=== PATIENT | male | born 1950 | race Caucasian/White ===

== ENCOUNTER → 2016-05-18 | Outpatient (CLI) | payer MEDICARE, BC ==
[2016-05-18 10:25] LABS: Appearance,Urine Clear (Clear); Basophils # (A) 0.1 k/uL (0-0.2); Basophils % (A) 1 %; Bilirubin,Urine Negative (Negative); CH 30.9; CHCM 31.9; Eosinophils # (A) 0.5 k/uL (0-0.7); Eosinophils % (A) 10 %; Glucose,Urine (UA) Negative (Negative); HCT 44.3 % (39.0-53.0); HDW 2.24; HGB 13.8 gm/dL (13.0-17.5); Ketones,Urine Trace (Negative); Leukocyte Esterase,Urine Trace (Negative); Luc # (Auto) 0.14; Luc % (Auto) 3; Lymphocytes # (A) 1.3 k/uL (1.0-4.8); Lymphocytes % (A) 26 %; MCH 30.2 pg (25.0-35.0); MCHC 31.1 g/dL (31.0-37.0); MCV 97.1 fL (80.0-100.0); Mean Platelet Volume 7.1; Monocytes # (A) 0.4 k/uL (0-1.0); Monocytes % (A) 8 %; Mucus,Urine Moderate /hpf; Neutrophils # (A) 2.6 k/uL (1.3-7.7); Neutrophils % (A) 52 %; Nitrite,Urine Negative (Negative); PH, Urine 5.5 (5.0-8.0); Particle Count 5702; Protein,Urine Trace (Negative); RBC 4.57 m/uL (4.30-5.90); RBC,Urine 1 /hpf (0-5); RDW 14.3 % (11.5-15.5); Specific Gravity,Urine 1.026 (1.001-1.035); UA Billing (MACRO vs. MICRO) MICRO; WBC 4.9 k/uL (3.8-10.6); WBC (Perox) 5.59; WBC,Urine 2 /hpf (0-5)
[2016-05-18 10:29] LABS: INR 0.9 (<1.1); Prothrombin Time 9.6 sec (9.0-12.0)
[2016-05-18 10:42] LABS: ALT 35 U/L (21-72); AST 24 U/L (17-59); Alkaline Phosphatase 66 U/L (38-126); Anion Gap 5 mmol/L; Blood Urea Nitrogen 9 mg/dL (9-20); Calcium 9.6 mg/dL (8.4-10.2); Carbon Dioxide 25 mmol/L (22-30); Chloride 113 mmol/L (98-107); Glucose 87 mg/dL (74-99); Non-African American GFR(MDRD) >60 (>60 ml/min/1.73 sqM); Potassium 4.6 mmol/L (3.5-5.1); Sodium 143 mmol/L (137-145); Total Bilirubin 0.6 mg/dL (0.2-1.3); Total Protein 6.9 g/dL (6.3-8.2)
== END | disposition home or self-care (01) ==
LOC: LABPAT 09:52
PROVIDERS: ATTEND Orthopaedic Surgery
DX: Z01.810 Encounter for preprocedural cardiovascular examination (principal)
CPT/HCPCS: 80053; 81001; 85025; 85610; 85730; 86850; 86900; 86901; 87070

== ENCOUNTER → 2016-05-28 | Outpatient (CLI) | payer MEDICARE, BC | END | disposition home or self-care (01) | LOC: LABPAT 11:25 | PROVIDERS: ATTEND Orthopaedic Surgery | DX: Z01.810 Encounter for preprocedural cardiovascular examination (principal) | CPT/HCPCS: 93005 ==

== ENCOUNTER 2016-05-29 05:53 | Inpatient (IN) | payer MEDICARE, BC ==
--- NOTE | 2016-05-17 17:49 | CONS ---
DATE OF CONSULTATION: DATE OF SURGERY: 05/29/2016 Mr. Laboy is a 65-year-old gentleman who is scheduled for total right hip arthroplasty by Dr. Mccain on May 29, and we have been asked to see him regarding general medical concerns and his medical condition. The patient does have an underlying history of severe degenerative joint disease in the right hip. He also has a history of hypothyroidism. He also does have underlying myasthenia gravis, for which he is under treatment, and there is a history of hyperlipidemia, but statins and medications have not been used in light of his muscle problems with the myasthenia. Patient has had previous knee surgeries and also repair of the left shoulder back in 2007. There is no history of myocardial infarctions, diabetes or stroke. Home medications include: 1. Zantac 150 mg twice a day. 2. Levothyroxine 50 mcg. 3. Prednisone 20 mg tablets 2 of them every other day. 4. Mestinon 60 mg at 6 a.m., 9 a.m., 12, 3 p.m. and 6 p.m., then he takes a time span 180 mg Mestinon at 9 p.m. 5. Low-dose aspirin 81 mg. NO KNOWN ALLERGIES. REVIEW OF SYSTEMS: Negative for any unusual fever, chills or cough. No chest pain. No unusual headaches. No nausea, vomiting. No urinary or bowel symptoms. No unusual edema. FAMILY HISTORY: Positive for coronary artery disease. SOCIAL HISTORY: Patient does drink 1 to 2 daily. Lives locally with his . Patient has never smoked. On physical examination, he is alert, oriented, in no acute distress. His blood pressure was 134/80. His weight was 228.6 pounds and BMI of 31. Pulse of 80 and regular. HEENT: Unremarkable. Extraocular movements were intact. Neck is supple without thyromegaly or adenopathy noted. There is a scar from his recent surgery on his thymus, which was found to be benign. LUNGS: Clear to auscultation. HEART: Regular without murmurs. ABDOMEN: Soft and nontender. EXTREMITIES: No unusual edema. SCROTAL AND RECTAL: Deferred at this time. Patient is having labs and EKG performed at the hospital. At this point I see no definite contraindication to the planned surgery. We did recommend he hold his aspirin multiple vitamins one week prior to surgery. He may take his prednisone and Mestinon and levothyroxine in the morning of surgery with a small sip of water and also would consider additional IV corticosteroids magalys- and postoperative such as 100 mg of hydrocortisone IV at those times and also monitoring his blood pressure closely for any signs of any adrenal insufficiency. But I see no definite contraindication to the planned surgical intervention. Please call if you have any questions, concerns or problems. His right hip surgery scheduled at [facility] on May 29, 2016.
[2016-05-23 15:14] VITALS: BMI 30.5
[~2016-05-29 05:53] MED LIST: DEXAMETHASONE SOD PHOSPHATE 10 MG/ML 1 ML VIAL IV ONE; MIDAZOLAM 2 MG/2 ML VIAL IV PRN; ONDANSETRON 4 MG/2 ML VIAL IVP ONE; ceFAZolin 2 GM in SODIUM CHLORIDE 0.9% 100 ML IVPB ONE
[2016-05-29] MEDS: LACTATED RINGERS 1,000 ML IV SCH ×3 (06:48→23:22)
[2016-05-29] MEDS ORDERED: LIDOCAINE 1% 20 ML VIAL (10MG/ML) FOR IV START INTRADERMA ONE (06:49)
[2016-05-29 06:57] LABS: Glucose,Whole Blood 114 mg/dL (75-99)
[2016-05-29] MEDS ORDERED: HEPARIN SODIUM,PORCINE 10,000 UNIT/ML 1 ML VIAL ONE (07:00)
[2016-05-29] MEDS ORDERED: ePHEDrine 50 MG/ML 1 ML AMP ONE (07:00)
[2016-05-29] MEDS ORDERED: LIDOCAINE 1% INJ 10MG/ML (20 ML MDV) ONE (07:00)
[2016-05-29] MEDS ORDERED: SODIUM CHLORIDE 0.9% IRRIG 1,000 ML BTL IRRIGATION ONE (07:00)
[2016-05-29] MEDS ORDERED: MIDAZOLAM 2 MG/2 ML VIAL ONE (07:00)
[2016-05-29] MEDS ORDERED: GLYCOPYRROLATE 0.2 MG/ML 2 ML VIAL ONE (07:00)
[2016-05-29] MEDS ORDERED: PROPOFOL 10 MG/ML 20 ML VIAL IV ONE (07:00)
[2016-05-29] MEDS ORDERED: fentaNYL (PF) 50 MCG/ML 2 ML AMP ONE (07:00)
[2016-05-29] MEDS ORDERED: PHENYLEPHRINE-0.9% NACL SYG 1 MG/10 ML SYRINGE ONE (07:00)
[2016-05-29] MEDS ORDERED: ceFAZolin 3,000 MG in SODIUM CHLORIDE 0.9% IRRIGATIO 3,000 ML IRRIGATION ONE (07:39)
[2016-05-29] MEDS ORDERED: LACTATED RINGERS 1,000 ML IV ONE ×2 (07:58→09:05)
[2016-05-29] MEDS ORDERED: NALOXONE 0.4 MG/ML 1 ML VIAL IV PRN (09:33)
[2016-05-29] MEDS ORDERED: ONDANSETRON 4 MG/2 ML VIAL IVP PRN (09:33)
[2016-05-29] MEDS ORDERED: HYDROmorphone 1 MG/ML 1 ML SYRINGE IVP PRN ×3 (09:33)
[2016-05-29] MEDS ORDERED: MAGNESIUM HYDROXIDE 2,400 MG/10 ML CUP PO PRN (09:33)
[2016-05-29] MEDS ORDERED: TEMAZEPAM 15 MG CAP PO PRN (09:33)
[2016-05-29] MEDS ORDERED: HYDROcodone/APAP 5-325MG 1 EACH TAB PO PRN ×2 (09:33)
--- NOTE | 2016-05-29 09:48 | XR ---
EXAMINATION TYPE: XR Hip Limited RT DATE OF EXAM: 05/29/2016 9:41 AM COMPARISON: NONE HISTORY: 65-year-old male postop RAGHAVENDRA, assess alignment TECHNIQUE: Single portable frontal view FINDINGS: There is postoperative soft tissue gas. The radiocarpal arthroplasty is present. Both acetabular cup and femoral short stemmed components of the prosthesis appear well seated without periprosthetic frac ture seen. Alignment is grossly anatomic. IMPRESSION: Uncomplicated postoperative appearance right total hip arthroplasty.
[2016-05-29] MEDS ORDERED: PYRIDOSTIGMINE 60 MG TAB PO STA (10:33)
[2016-05-29] MEDS: HYDROmorphone 1 MG/ML 1 ML SYRINGE IVP PRN ×2 (10:57→11:31)
[2016-05-29] MEDS: MULTIVITAMINS, THERA 1 EACH TAB PO SCH (13:04)
[2016-05-29] MEDS: hydrOXYzine PAMOATE 25 MG CAP PO PRN ×2 (13:08→18:04)
[2016-05-29] MEDS ORDERED: PYRIDOSTIGMINE 60 MG TAB PO SCH ×2 (14:00→21:00)
[2016-05-29] MEDS: PYRIDOSTIGMINE 60 MG TAB PO SCH ×3 (15:15→23:22)
--- NOTE | 2016-05-29 17:19 | P.PN ---
Progress Note - Text The patient is a 65-year-old gentleman who has undergone a total right hip arthroplasty by Dr. Mccain today. He is sitting up in a chair at the side of the bed this afternoon. He is alert and oriented. He is complaining of some mild to moderate right hip area discomfort. He denies any chest pain or shortness of breath. No nausea or vomiting. He does have other history which includes hypothyroidism and myasthenia gravis. And he is on prednisone therapy for his myasthenia. Vital signs reveal temperature of 98 with a pulse 68 and respirations 16. Blood pressure is 127/71 and he is 93% saturated on room air. Head and neck exam unremarkable. Lung and heart clear and regular. Abdomen nontender. No unusual edema or neurological deficits. Accu-Chek earlier is 114 Impressions and plans: Overall this gentleman is doing well post right hip arthroplasty. His maintenance prednisone dosages have been ordered along with medications for hypothyroidism and his maintenance medicine for his myasthenia. At this time appears he can be progressed as per orthopedics. Will follow but please call if any questions or concerns or problems should arise.
[2016-05-29] MEDS ORDERED: WARFARIN 5 MG TAB PO ONE (18:00)
[2016-05-29] MEDS: ceFAZolin 2 GM in SODIUM CHLORIDE 0.9% 100 ML IVPB SCH ×2 (18:05→23:23)
[2016-05-29] MEDS: HYDROcodone/APAP 7.5-325MG 1 EACH TAB PO PRN ×2 (18:05→23:22)
[2016-05-29] MEDS: SENNOSIDES-DOCUSATE SODIUM 1 EACH TAB PO SCH (21:07)
[2016-05-30] MEDS: PYRIDOSTIGMINE 60 MG TAB PO SCH ×8 (00:47→22:26)
[2016-05-30] MEDS: HYDROcodone/APAP 7.5-325MG 1 EACH TAB PO PRN (04:30)
[2016-05-30] MEDS: FAMOTIDINE 20 MG TAB PO SCH (04:54)
[2016-05-30] MEDS: LACTATED RINGERS 1,000 ML IV SCH ×3 (05:41→16:21)
[2016-05-30 07:29] LABS: INR 1.1 (<1.1); Prothrombin Time 10.8 sec (9.0-12.0)
[2016-05-30 07:54] LABS: Basophils % (A) 0 %; CH 31.1; CHCM 32.4; Eosinophils # (A) 0.1 k/uL (0-0.7); Eosinophils % (A) 1 %; HCT 34.2 % (39.0-53.0); HDW 2.22; HGB 11.2 gm/dL (13.0-17.5); Luc % (Auto) 2; Lymphocytes # (A) 1.3 k/uL (1.0-4.8); Lymphocytes % (A) 21 %; MCH 31.4 pg (25.0-35.0); MCHC 32.6 g/dL (31.0-37.0); MCV 96.3 fL (80.0-100.0); Mean Platelet Volume 7.2; Monocytes # (A) 0.4 k/uL (0-1.0); Monocytes % (A) 7 %; Neutrophils # (A) 4.1 k/uL (1.3-7.7); Neutrophils % (A) 69 %; RBC 3.55 m/uL (4.30-5.90); RDW 14.1 % (11.5-15.5); WBC (Perox) 6.45
[2016-05-30] MEDS ORDERED: PYRIDOSTIGMINE 60 MG TAB PO ONE (08:00)
[2016-05-30] MEDS: LEVOTHYROXINE 50 MCG TAB PO SCH (08:27)
--- NOTE | 2016-05-30 08:30 | P.PN ---
Progress Note - Text The patient is a 65-year-old gentleman who underwent total right hip arthroplasty yesterday. Patient does have previous history of hypothyroidism and myasthenia gravis. This morning he is alert up in bed. Denies any chest pain or shortness of breath. No nausea or vomiting. He is having some surgical site pain but overall controlled. Vital signs reveal temperature 98.1 with a pulse of 54 and respirations 16. Blood pressure is 120/66 and he is 96% saturated on room air. Lung and heart exam was clear and regular. Abdomen is nontender. No unusual distal edema or focal neurological changes noted. Labs: White count is 6 with a hemoglobin 11.2 and a platelet count of 187. INR is 1.1 and blood sugar 114. Impressions and plans: Generally patient appears to be doing well first-day postop from the right hip arthroplasty. Blood pressures are remaining stable. Neuromuscular status appears to be satisfactory. He'll be continued on his maintenance prednisone and Mestinon. Thyroid is also being continued. Discussed with patient and staff at bedside this morning.
--- NOTE | 2016-05-30 08:30 | P.PN ---
Subjective Principal diagnosis: Status post right total hip arthroplasty This is a 65 year-old male post right total hip arthroplasty. This is post-op day 1. The patient was evaluated at the bedside today. The patient denies nausea, vomiting, abdominal pain, shortness of breath, and chest pain this morning. He states his pain is controlled at this time. The patient has not been up with physical therapy but did get up in the recliner chair last night. Objective - Vital Signs Vital signs: Vital Signs Temp 98.1 F 05/30/16 07:00 Pulse 54 L 05/30/16 07:00 Resp 16 05/30/16 07:00 BP 120/66 05/30/16 07:00 Pulse Ox 96 05/30/16 07:00 Intake & Output 05/29/16 05/30/16 05/30/16 18:59 06:59 18:59 Intake Total 2781 2000 Output Total 1200 2450 Balance 1581 -450 Intake: IV 2301 Intake, IV Titration 1100 Amount Lactated Ringers 1,000 ml 1100 @ 100 mls/hr IV .Q10H FABRICIO Rx#:[id number] Oral 480 900 Output: Urine 1000 2450 Uretheral (Herrera) 500 Estimated Blood Loss 200 Other: Voiding Method Indwelling Catheter - Exam The patient does not appear in acute distress. Alert and orientated x3. Dressing is clean dry and intact. Incision appears fine with no erythema or active drainage. Calf is soft and nontender. Good foot and ankle motion without difficulty. Sensation and circulatory status is intact. - Labs CBC & Chem 7: 05/30/16 06:46 Labs: Abnormal Lab Results - Last 24 Hours (Table) 05/30/16 Range/Units 06:46 RBC 3.55 L (4.30-5.90) m/uL Hgb 11.2 L (13.0-17.5) gm/dL Hct 34.2 L (39.0-53.0) % Laboratory Tests 05/30/16 06:46 PT 10.8 INR 1.1 Assessment and Plan (1) Primary localized osteoarthritis of right hip Status: Acute (2) Status post right hip replacement Status: Acute Plan: 1. Continue pain control 2. Anticoagulation with Coumadin per protocol 3. Start physical therapy and ambulation today 4. Anticipate discharge home with homecare
[2016-05-30] MEDS ORDERED: HYDROcodone/APAP 10-325MG 1 EACH TAB PO PRN (08:37)
[2016-05-30] MEDS: hydrOXYzine PAMOATE 25 MG CAP PO PRN ×2 (09:38→15:19)
[2016-05-30] MEDS: HYDROcodone/APAP 10-325MG 1 EACH TAB PO PRN ×3 (09:38→20:29)
[2016-05-30] MEDS: MULTIVITAMINS, THERA 1 EACH TAB PO SCH (13:13)
--- NOTE | 2016-05-30 17:20 | OP ---
DATE OF SERVICE: 05/29/2016 SURGEON: MARICRUZ AMBRIZ DO SOFTWOOD FALLER: YOLANDA GRIER PA-C PREOPERATIVE DIAGNOSIS: Degenerative joint disease of the right hip. POSTOPERATIVE DIAGNOSIS: Degenerative joint disease of the right hip. OPERATION: Right total hip replacement arthroplasty utilizing Blaire components with metal-backed cup polyethylene liner and ceramic head, press-fit. ANESTHESIA: ESTIMATED BLOOD LOSS: SPECIMENS REMOVED: COMPLICATIONS: OPERATIVE FINDINGS: DESCRIPTION OF PROCEDURE: Patient was taken to the operative suite and placed in supine position. Spinal anesthesia was performed by the department of anesthesiology. Patient was placed in right recumbent position and securely padded on the surgical table. A Betadine prep was carried out over the right hip. Sterile drapes were applied in the usual manner. A longitudinal incision was developed proximal femur. Sharp dissection through the subcutaneous tissues was performed. Tensor fascia jose alejandro was incised. A Charnley self-retaining retractor was inserted. Gluteus medius was dissected along the greater trochanter. The anterior capsule was excised and the leg was brought into abduction and the femoral head was dislocated. Femoral neck was shaped with a bone saw and the femoral head measured. The box chisel was utilized to gain access to the femoral canal. The trochanteric reamer was utilized in preparing the proximal canal. The neck was shaped with a shelving planer. Alignment well maintained. The acetabulum was then approached and the capsule was incised around the edge. Graduated reamer was utilized and 56 mm press-fit metal-backed component. The area was irrigated copiously with pulsatile antibiotic solution. The metal cup size 56, impacted into position, in appropriate alignment and position for stability. Three cancellous screws were utilized for further stability for the metal-backed cup. A 32 mm polyethylene liner was inserted and alignment of the impacted and locked into position in the metal-backed cup. Proximal femur was then approached with the leg in abduction. The size 12 femoral component was impacted into position. The ceramic head and stem were impacted into the trunnion. The hip was reduced and alignment and stability were maintained. The press-fit stem size 12 was inserted into the canal and impacted. The leg length appeared comparable to the opposite leg. The leg was then stabilized in mild abduction. The gluteus medius #3 Vicryl suture in horizontal mattress fashion. Number 2 Quill was utilized in reinforcing tensor fascia jose alejandro. Vicryl 2-0 suture was utilized in closing the subcutaneous tissue in interrupted fashion. Skin was approximated with #3-0 Quill suture in subcuticular fashion. Skin was sealed with Dermabond. A sterile dressing was applied. Patient was placed in abductor splint and sent to recovery room in stable condition. GROSS PATHOLOGY: Severe degenerative joint disease, right hip. Estimated blood loss 110 mL. CellSaver was utilized to return 60 mL blood. [facility]
[2016-05-30] MEDS ORDERED: WARFARIN 7.5 MG TAB PO ONE (18:00)
[2016-05-30] MEDS: SENNOSIDES-DOCUSATE SODIUM 1 EACH TAB PO SCH (19:32)
[2016-05-30 21:08] VITALS: RESP 16
[2016-05-31] MEDS: PYRIDOSTIGMINE 60 MG TAB PO SCH ×8 (01:39→23:05)
[2016-05-31] MEDS: LACTATED RINGERS 1,000 ML IV SCH (03:07)
[2016-05-31] MEDS: FAMOTIDINE 20 MG TAB PO SCH (05:58)
[2016-05-31] MEDS: MULTIVITAMINS, THERA 1 EACH TAB PO SCH (07:45)
[2016-05-31] MEDS: LEVOTHYROXINE 50 MCG TAB PO SCH (07:45)
[2016-05-31] MEDS: HYDROcodone/APAP 10-325MG 1 EACH TAB PO PRN (07:48)
[2016-05-31 07:49] LABS: INR 1.2 (<1.1); Prothrombin Time 12.3 sec (9.0-12.0)
--- NOTE | 2016-05-31 08:31 | P.PN ---
Progress Note - Text The patient is a 65-year-old gentleman who underwent total right hip arthroplasty 2 days ago. Patient does have history of myasthenia gravis and hypothyroidism for which he is on treatment. Patient states he generally has been feeling well. He denies any cough or phlegm production. He denies any nausea. He does have some hip area postsurgical discomfort but states it's better today than yesterday. He denies any dysuria or blood in his urine. Temperature is 100.3 this morning. Pulse is 70 with respirations 16 and blood pressure 120/74. He is 90% saturated on room air. Head and neck exam unremarkable. Lung and heart exam clear and regular. Abdomen is nontender. No unusual distal edema. No focal neurological changes. INR this morning is 1.2. Impressions: Patient appears to generally be doing well post right hip arthroplasty 2 days ago. Continue to progress as per orthopedics. He does have a low-grade temperature and we will check a urinalysis. Continue present medications for his underlying hypothyroidism and myasthenia. The patient is anticipating possibly home tomorrow. Coumadin adjusted as per orthopedics. Discussed with patient and staff this morning.
--- NOTE | 2016-05-31 08:35 | P.PN ---
Subjective Principal diagnosis: Status post right total hip arthroplasty This is a 65 year-old male post right total hip arthroplasty. This is post-op day 2. The patient was evaluated at the bedside today. The patient denies nausea, vomiting, abdominal pain, shortness of breath, and chest pain this morning. He states his pain is controlled at this time. The patient states he ambulated in the hallway yesterday. Objective - Vital Signs Vital signs: Vital Signs Temp 100.3 F H 05/31/16 07:00 Pulse 70 05/31/16 07:00 Resp 16 05/31/16 07:00 BP 120/74 05/31/16 07:00 Pulse Ox 90 L 05/31/16 07:00 Intake & Output 05/30/16 05/31/16 05/31/16 18:59 06:59 18:59 Intake Total 2460 400 240 Output Total 2024 1150 Balance 435 -750 240 Weight 102.058 kg Intake: Oral 2460 400 240 Output: Urine 2024 1150 Uretheral (Herrera) 450 Other: Voiding Method Indwelling Catheter Urinal - Exam The patient does not appear in acute distress. Alert and orientated x3. Dressing is clean dry and intact. Incision appears fine with no erythema or active drainage. Calf is soft and nontender. Good foot and ankle motion without difficulty. Sensation and circulatory status is intact. - Labs CBC & Chem 7: 05/30/16 06:46 Labs: Abnormal Lab Results - Last 24 Hours (Table) 05/31/16 Range/Units 07:12 PT 12.3 H (9.0-12.0) sec Laboratory Tests 05/31/16 07:12 PT 12.3 H INR 1.2 Assessment and Plan (1) Primary localized osteoarthritis of right hip Status: Acute (2) Status post right hip replacement Status: Acute Plan: 1. Continue pain control 2. Anticoagulation with Coumadin per protocol 3. Continue physical therapy and ambulation 4. Anticipate discharge home with homecare tomorrow.
[2016-05-31] MEDS ORDERED: predniSONE 20 MG TAB PO SCH (09:00)
[2016-05-31 11:29] LABS: Appearance,Urine Clear (Clear); Bilirubin,Urine Negative (Negative); Glucose,Urine (UA) Negative (Negative); Ketones,Urine Negative (Negative); Leukocyte Esterase,Urine Negative (Negative); Nitrite,Urine Negative (Negative); Protein,Urine Negative (Negative); Specific Gravity,Urine 1.009 (1.001-1.035); UA Billing (MACRO vs. MICRO) CHEM; Urobilinogen,Urine <2.0 mg/dL (<2.0)
[2016-05-31] MEDS ORDERED: PYRIDOSTIGMINE 60 MG TAB PO SCH (12:00)
[2016-05-31] MEDS ORDERED: WARFARIN 7.5 MG TAB PO ONE (18:00)
[2016-05-31] MEDS: SENNOSIDES-DOCUSATE SODIUM 1 EACH TAB PO SCH (19:55)
[2016-06-01] MEDS: PYRIDOSTIGMINE 60 MG TAB PO SCH ×3 (02:05→09:02)
[2016-06-01] MEDS: FAMOTIDINE 20 MG TAB PO SCH (05:52)
[2016-06-01] MEDS: MULTIVITAMINS, THERA 1 EACH TAB PO SCH (07:48)
[2016-06-01] MEDS: LEVOTHYROXINE 50 MCG TAB PO SCH (07:48)
[2016-06-01 07:52] VITALS: BP 125/76; PULSE 59; TEMP 98.9
[2016-06-01 07:55] LABS: Basophils % (A) 0 %; CH 30.9; CHCM 32.5; Eosinophils # (A) 0.2 k/uL (0-0.7); Eosinophils % (A) 3 %; HCT 34.8 % (39.0-53.0); HDW 2.25; HGB 11.4 gm/dL (13.0-17.5); Luc # (Auto) 0.18; Luc % (Auto) 2; Lymphocytes # (A) 1.4 k/uL (1.0-4.8); Lymphocytes % (A) 18 %; MCH 31.4 pg (25.0-35.0); MCHC 32.9 g/dL (31.0-37.0); MCV 95.4 fL (80.0-100.0); Mean Platelet Volume 7.8; Monocytes # (A) 0.5 k/uL (0-1.0); Monocytes % (A) 7 %; Neutrophils # (A) 5.7 k/uL (1.3-7.7); Neutrophils % (A) 70 %; RBC 3.65 m/uL (4.30-5.90); RDW 13.9 % (11.5-15.5); WBC 8.1 k/uL (3.8-10.6); WBC (Perox) 8.68
--- NOTE | 2016-06-01 08:11 | P.PN ---
Progress Note - Text The patient is a 65-year-old gentleman who has undergone total right hip arthroplasty 3 days previous. He does have underlying myasthenia gravis and hypothyroidism and is on medications for both. Yesterday he had a low-grade temp in the morning but this remained down the rest of the day. He denies any chest pain or shortness of breath. No nausea or vomiting. Temperature is 98.9 with a pulse of 59 and respirations 16. Blood pressure 125/ 76. He is 97% saturated on room air. Lung and heart examination is clear. There are no neurological deficits. No unusual distal edema noted. Laboratory values White count is 8.1 with a hemoglobin 11.4 and a platelet count of 194. His urinalysis was clear from yesterday. Impressions and plans: Overall this gentleman appears to be progressing well. Continue to progress as per orthopedics. If discharged, patient is to continue his previous home medications that include his prednisone every 48 hours along with his Mestinon and Synthroid. Further medications and analgesics as per orthopedics. Routine follow-up in the office. He is to call if any questions concerns or problems.
[2016-06-01 08:13] LABS: INR 1.3 (<1.1)
[2016-06-01 08:14] LABS: Prothrombin Time 12.8 sec (9.0-12.0)
--- NOTE | 2016-06-01 09:33 | P.DS ---
Providers Date of admission: 05/29/16 05:53 Expected date of discharge: 06/01/16 Attending physician: Elder Mccain Consults: 05/29/16 09:33 Consult Physician Routine Consulting Provider: Bennie Browning Reason/Comments: medical management Do you want consulting provider notified?: Yes Primary care physician: Bennie Browning - Discharge Diagnosis(es) (1) Primary localized osteoarthritis of right hip Current Visit: Yes Status: Acute (2) Status post right hip replacement Current Visit: Yes Status: Acute Hospital Course: This is a 65-year-old male with known history of degenerative arthritis of the right hip. The patient presents for evaluation. After discussion and consideration patient elects to proceed with total hip arthroplasty. The patient is seen preoperatively by Dr. Browning and cleared for surgery. Patient is admitted to [facility] on 05/29/2016 for total hip arthroplasty. The procedures performed without complication or sequelae. The patient is doing well postoperatively. Labs and vital signs are stable on day of discharge. On day of discharge patient's hip incision is healing well. There is minimal erythema. There is no drainage noted at this time. There is minimal soft tissue swelling to the hip and thigh. Patient has full foot and ankle motion without difficulty or pain. Neurovascular status to the right lower extremity is intact. Patient is discharged to home in good condition. Pertinent Studies: Laboratory Tests 06/01/16 06/01/16 07:11 07:11 WBC 8.1 RBC 3.65 L Hgb 11.4 L Hct 34.8 L PT 12.8 H INR 1.3 Patient Condition at Discharge: Stable Plan - Discharge Summary New Discharge Prescriptions: Aspirin 325 mg PO DAILY #30 tab HYDROcodone/APAP 10-325MG [[place] 10-325] 1 - 2 tab PO Q4-6H PRN #60 tab PRN Reason: Pain Sennosides-Docusate Sodium [Senokot-S] 2 tab PO DAILY #30 tablet Warfarin [Coumadin] 2.5 mg PO DIRECTED #30 tab Discharge Medication List Levothyroxine Sodium [Synthroid] 50 mcg PO DAILY 01/20/15 [History] Pyridostigmine [place] [Mestinon] 60 mg PO DIRECTED 01/20/15 [History] Aspirin [Adult Low Dose Aspirin EC] 81 mg PO DAILY 05/23/16 [History] Multivit-Min/FA/Lycopene/Lut [Centrum Silver Tablet] 1 tab PO DAILY 05/23/16 [ History] Pyridostigmine [place] [Mestinon] 180 mg PO 2100 05/23/16 [History] Ranitidine HCl [Zantac] 300 mg PO 0600 05/23/16 [History] predniSONE [predniSONE TAPER] 40 mg PO Q48H 05/23/16 [History] Warfarin Sodium [Warfarin Sodium] 2.5 mg PO DAILY 05/29/16 [History] Warfarin Sodium [Warfarin Sodium] 7.5 mg PO ONCE 05/29/16 [History] Aspirin 325 mg PO DAILY #30 tab 06/01/16 [Rx] HYDROcodone/APAP 10-325MG [[place] 10-325] 1 - 2 tab PO Q4-6H PRN #60 tab [Rx] Sennosides-Docusate Sodium [Senokot-S] 2 tab PO DAILY #30 tablet 06/01/16 [Rx] Warfarin [Coumadin] 2.5 mg PO DIRECTED #30 tab 06/01/16 [Rx] Follow up Appointment(s)/Referral(s): Elder Mccain DO [Doctor of Osteopathic Medicine] - 06/12/16 2:45 pm [facility] Visiting Nurse, [NON-STAFF] - 1 Week Activity/Diet/Wound Care/Special Instructions: Weightbearing as tolerated with a walker Coumadin 2.5 mg 1 by mouth every other day for 7 days then take Aspirin 325mg daily for 1 month Follow Hip precautions Use Abductor pillow as instructed May shower in 3 days if no drainage from incision Keep incision clean and dry Call [facility] [phone] with questions or concerns Discharge Disposition: HOME WITH HOME HEALTH SERVICES
== END 2016-06-01 12:36 | disposition home health service (06) | DRG 470 ==
LOC: 2ORMAIN 05:53 → 3SUR 11:36
PROVIDERS: ADMIT Orthopaedic Surgery; ATTEND Orthopaedic Surgery
PROC: 0SR904A Replacement of Right Hip Joint with Ceramic on Polyethylene Synthetic Substitute, Uncemented, Open Approach (ICD-10-PCS; principal; 2016-05-29 07:00)
DX: M16.11 Unilateral primary osteoarthritis, right hip (principal); G70.00 Myasthenia gravis without (acute) exacerbation; E03.9 Hypothyroidism, unspecified; Z79.82 Long term (current) use of aspirin; Z79.899 Other long term (current) drug therapy; E78.5 Hyperlipidemia, unspecified
CPT/HCPCS: 73501; 81003; 85025; 85610; 86850; 86891; 86900; 86901; 87086; 88300; 93005

== ENCOUNTER 2016-11-08 21:34 | Emergency (ER) | payer MEDICARE, BC ==
[2016-11-08 21:42] VITALS: BP 166/74; PULSE 55; RESP 20; TEMP 98.4
[2016-11-08] MEDS ORDERED: diphenhydrAMINE 50 MG CAP PO STA (22:10)
[2016-11-08] MEDS ORDERED: CLINDAMYCIN 150 MG CAP PO STA (22:16)
--- NOTE | 2016-11-08 22:20 | ED ---
Skin/Abscess/FB HPI - General Chief complaint: Skin/Abscess/Foreign Body Stated complaint: bee sting/facial swelling Time Seen by Provider: 11/08/16 22:04 Source: patient Mode of arrival: ambulatory Limitations: no limitations - Related Data Home Medications Medication Instructions Recorded Confirmed Levothyroxine Sodium [Synthroid] 50 mcg PO DAILY 01/20/15 05/29/16 Pyridostigmine [place] [Mestinon] 60 mg PO DIRECTED 01/20/15 05/29/16 Aspirin [Adult Low Dose Aspirin EC] 81 mg PO DAILY 05/23/16 05/29/16 Multivit-Min/FA/Lycopen/Lutein 1 tab PO DAILY 05/23/16 05/29/16 [Centrum Silver Tablet] Pyridostigmine [place] [Mestinon] 180 mg PO 2100 05/23/16 05/29/16 Ranitidine HCl [Zantac] 300 mg PO 0600 05/23/16 05/29/16 predniSONE [predniSONE TAPER] 40 mg PO Q48H 05/23/16 05/29/16 Warfarin Sodium [Warfarin Sodium] 2.5 mg PO DAILY 05/29/16 05/29/16 Warfarin Sodium [Warfarin Sodium] 7.5 mg PO ONCE 05/29/16 05/29/16 Previous Rx's Medication Instructions Recorded Aspirin 325 mg PO DAILY #30 tab 06/01/16 HYDROcodone/APAP 10-325MG [[place] 1 - 2 tab PO Q4-6H PRN #60 tab 06/01/16 10-325] Sennosides-Docusate Sodium 2 tab PO DAILY #30 tablet 06/01/16 [Senokot-S] Warfarin [Coumadin] 2.5 mg PO DIRECTED #30 tab 06/01/16 Clindamycin [Cleocin] 450 mg PO Q6H 7 Days 11/08/16 diphenhydrAMINE [Benadryl] 25 mg PO QID PRN #30 capsule 11/08/16 Allergies Allergy/AdvReac Type Severity Reaction Status Date / Time No Known Allergies Allergy Verified 11/08/16 21:42 Review of Systems ROS Statement: Those systems with pertinent positive or pertinent negative responses have been documented in the HPI. ROS Other: All systems not noted in ROS Statement are negative. Past Medical History Past Medical History: Eye Disorder, Hearing Disorder / Deafness, Musculoskeletal Disorder, Osteoarthritis (OA), Thyroid Disorder Additional Past Medical History / Comment(s): myasthenia gravis History of Any Multi-Drug Resistant Organisms: None Reported Past Surgical History: Orthopedic Surgery Additional Past Surgical History / Comment(s): ORIF LT ANKLE, LT KNEE, LT FEMUR (PLATE/SCREWS). LT ROTATOR CUFF SURG, HAS IMPLANTS. LT RING FINGER SURG. RT KNEE SURG. LT EAR DRUM REPAIR. REMOVAL THYMUS GLAND 02/2016, total right hip arthroplasty 05/29/2016 Past Anesthesia/Blood Transfusion Reactions: No Reported Reaction Additional Past Anesthesia/Blood Transfusion Reaction / Comment(s): CONCERNED ABOUT ANESTHESIA D/T MG. Past Psychological History: Anxiety Smoking Status: Never smoker Past Alcohol Use History: Daily Past Drug Use History: None Reported - Past Family History Mother Family Medical History: Cancer General Exam Limitations: no limitations Course Vital Signs 11/08/16 21:39 Temperature 98.4 F Pulse Rate 55 L Respiratory 20 Rate Blood Pressure 166/74 O2 Sat by Pulse 100 Oximetry Disposition Clinical Impression: Local reaction to bee sting, Nose cellulitis Disposition: HOME SELF-CARE Condition: Good Instructions: Cellulitis (ED), Insect Bite or Sting (ED) Additional Instructions: Patient advised to take probiotics while taking the antibiotic prescription. Follow-up with her primary care physician if any alarming signs or symptoms occur. Recommended return to the emergency department if the area of swelling and redness worsens despite therapy. Prescriptions: Clindamycin [Cleocin] 450 mg PO Q6H 7 Days diphenhydrAMINE [Benadryl] 25 mg PO QID PRN #30 capsule PRN Reason: Pain Referrals: Bennie Browning MD [Primary Care Provider] - 1-2 days Time of Disposition: 22:16
== END 2016-11-08 22:33 | disposition home or self-care (01) ==
LOC: EC 21:34
DX: T63.441A Toxic effect of venom of bees, accidental (unintentional), initial encounter (principal); J34.0 Abscess, furuncle and carbuncle of nose; E07.9 Disorder of thyroid, unspecified; M19.90 Unspecified osteoarthritis, unspecified site; G70.00 Myasthenia gravis without (acute) exacerbation; Z79.01 Long term (current) use of anticoagulants; Z79.52 Long term (current) use of systemic steroids; Z79.82 Long term (current) use of aspirin; Z79.899 Other long term (current) drug therapy
CPT/HCPCS: 87070; 87205; 99283

== ENCOUNTER → 2019-02-10 | Outpatient (CLI) | payer MEDICARE, BC ==
--- NOTE | 2019-02-11 07:43 | BD ---
EXAMINATION TYPE: Axial Bone Density DATE OF EXAM: 02/10/2019 COMPARISON: NONE CLINICAL HISTORY: long-term use of steroids Height: 5'11 2 Weight: 231 FRAX RISK QUESTIONS: Alcohol (3 or more units per day): y Glucocorticoids (More than 3mos): y (Ex: prednisone, prednisolone, methylprednisolone, dexamethasone, and hydrocortisone). History of Fracture in Adulthood: y Secondary Osteoporosis: RISK FACTORS HISTORY OF: Surgery to Hip(right/): total rt hip, left hip plates and screws 1991 When: 2017 Active: y Diet low in dairy products/other sources of calcium: y Poor Health: y MEDICATIONS: Prednisone or other steroids: y How Lon Thyroid Medications: Which medication: Levothyroxine How Lon years Additional Medications: prednisone, pyridostigmine , azathioprine Additional History: myasthenia gravis EXAM MEASUREMENTS: Bone mineral densitometry was performed using the [employer] System. Bone mineral density as measured about the Lumbar spine is: ----- L1-L4(G/cm2): 1.157 T Score Values are as follows: ----- L2: -0.1 ----- L3: 0.2 ----- L4: -0.5 ----- L1-L4: -0.2 Bone mineral density about the L Wrist (g/cm2): 0.784 T Score values are as follows: -----Dist. R+U: -1.3 -----Prox. R+U: 1.3 -----Radius total: 0.5 IMPRESSION: Osteopenia (T Score between -2.5 and -1) with regards to the left wrist. There is slightly increased risk of fracture and the patient may be considered for treatment. Re-Screen 2-5 years. NOTE: T-SCORE=SD OF THE YOUNG ADULT MEAN.
== END | disposition home or self-care (01) ==
LOC: RADBDWWP 14:05
PROVIDERS: ATTEND Family Medicine
DX: M85.842 Other specified disorders of bone density and structure, left hand (principal); Z79.52 Long term (current) use of systemic steroids
CPT/HCPCS: 77080

== ENCOUNTER 2019-12-18 15:53 | Emergency (ER) | payer MEDICARE, BC ==
[2019-12-18 16:09] VITALS: BP 144/81; PULSE 60; RESP 18; TEMP 98
[2019-12-18] MEDS ORDERED: LIDOCAINE/EPINEPHR/TETRACAINE 5 ML BOTTLE TOPICAL ONE (16:52)
[2019-12-18] MEDS ORDERED: TOPICAL SKIN ADHESIVE 1 EACH AMP TOPICAL ONE (16:52)
[2019-12-18] MEDS ORDERED: DIPH,PERTUS(ACELL)TETVAC-LF 0.5 ML VIAL IM ONE (17:03)
--- NOTE | 2019-12-18 17:20 | CT ---
EXAMINATION TYPE: CT facial bones wo con DATE OF EXAM: 12/18/2019 COMPARISON: None HISTORY: Fall. Facial injuries. CT DLP: mGycm Automated exposure control for dose reduction was used. Images were obtained from the top of the frontal sinuses to the bottom of the mandible without contra st. The mandibular ring is intact. Temporomandibular joints are intact. Zygomatic arches appear normal. M axilla is intact. There is no evidence of a blowout fracture. There is minimal mucosal thickening at the floor the right maxillary sinus. There is fairly normal aeration overall of the paranasal sinuses . There is no evidence of retro-orbital mass. The globes are symmetric. Orbital margins are intact. N gamal bone is intact. There is mild soft tissue swelling over the right frontal bone. IMPRESSION: Mild soft tissue swelling. No fracture seen.
--- NOTE | 2019-12-18 17:23 | CT ---
EXAMINATION TYPE: CT brain cspine wo con DATE OF EXAM: 12/18/2019 COMPARISON: None HISTORY: Fall. Facial injuries. CT DLP: 1264.5 mGycm Automated exposure control for dose reduction was used. Ventricles have normal size. There is no mass effect nor midline shift. There is no sign of intracran ial hemorrhage. Calvarium is intact. There is no evidence of cerebral edema. Skull base is intact. Th ere is incomplete pneumatization of the mastoid sinuses. Occipital bone is intact. There is mild straightening of the cervical spine. There is mild disc space nor in from C4 to C7 with spurring of the endplates. Posterior elements are intact. Facet joints are intact. There is no evide nce of any significant cervical bony spinal stenosis. IMPRESSION: Negative CT scan of the brain. Spondylotic changes in the mid and lower cervical spine. No fracture.
--- NOTE | 2019-12-18 17:39 | ED ---
Fall HPI - General Chief Complaint: Fall Stated Complaint: Fall, eye brow lac Time Seen by Provider: 12/18/19 16:39 Source: patient, RN notes reviewed Mode of arrival: wheelchair Limitations: no limitations - History of Present Illness Initial Comments: 69-year-old male present emergency Department with chief complaint of a fall. Patient states his been noted grab something and states that he cannot. I fell forward in his driveway. Patient has abrasions to his knees, right elbow, facial region presents for a sinus tetanus was. Patient also cleanser right fifth digit pain. Patient states that there is some bruising. He has pain with range of motion. He had no loss conscious denies any blood thinners other than aspirin. Patient states he has a laceration of his right eyebrow. Denies any blurred vision denies any nausea vomiting fever or chills no chest pain or shortness breath no neck pain or neck stiffness. - Related Data Home Medications Medication Instructions Recorded Confirmed Levothyroxine Sodium [Synthroid] 50 mcg PO DAILY 01/20/15 02/05/17 Pyridostigmine [place] [Mestinon] 60 mg PO Q2H 01/20/15 02/05/17 Aspirin [Adult Low Dose Aspirin EC] 81 mg PO DAILY 05/23/16 02/05/17 Multivit-Min/FA/Lycopen/Lutein 1 tab PO DAILY 05/23/16 02/05/17 [Centrum Silver Tablet] Pyridostigmine [place] [Mestinon] 180 mg PO 2100 05/23/16 02/05/17 Ranitidine HCl [Zantac] 300 mg PO 0600 05/23/16 02/05/17 Cholecalciferol [Vitamin D3] 1,000 unit PO DAILY 02/01/17 02/05/17 predniSONE [Deltasone] 20 mg PO DAILY 02/01/17 02/05/17 Allergies Allergy/AdvReac Type Severity Reaction Status Date / Time No Known Allergies Allergy Verified 12/18/19 16:09 Review of Systems ROS Statement: Those systems with pertinent positive or pertinent negative responses have been documented in the HPI. ROS Other: All systems not noted in ROS Statement are negative. Past Medical History Past Medical History: Eye Disorder, GERD/Reflux, Musculoskeletal Disorder, Osteoarthritis (OA), Thyroid Disorder Additional Past Medical History / Comment(s): myasthenia gravis, EYE DISORDER R/T MG History of Any Multi-Drug Resistant Organisms: None Reported Past Surgical History: Joint Replacement, Orthopedic Surgery Additional Past Surgical History / Comment(s): ORIF LT ANKLE, LT KNEE, LT FEMUR (PLATE/SCREWS). LT ROTATOR CUFF SURG, HAS IMPLANTS. LT RING FINGER SURG. RT KNEE SURG. LT EAR DRUM REPAIR. REMOVAL THYMUS GLAND 02/2016, RT RAGHAVENDRA 05/29/2016, COLONOSCOPY Past Anesthesia/Blood Transfusion Reactions: No Reported Reaction Additional Past Anesthesia/Blood Transfusion Reaction / Comment(s): CONCERNED ABOUT ANESTHESIA D/T MG. Past Psychological History: Anxiety Past Alcohol Use History: Daily Past Drug Use History: None Reported - Past Family History Mother Family Medical History: Cancer General Exam Limitations: no limitations General appearance: alert, in no apparent distress Head exam: Present: atraumatic, normocephalic, normal inspection Eye exam: Present: normal appearance, PERRL, EOMI, periorbital swelling, periorbital tenderness, other (3 cm superficial laceration right superior periorbital region). Absent: scleral icterus, conjunctival injection ENT exam: Present: normal exam, normal oropharynx, mucous membranes moist, other (Multiple facial abrasions noted) Neck exam: Present: normal inspection, full ROM. Absent: tenderness, meningismus, lymphadenopathy Respiratory exam: Present: normal lung sounds bilaterally. Absent: respiratory distress, wheezes, rales, rhonchi, stridor Cardiovascular Exam: Present: regular rate, normal rhythm, normal heart sounds. Absent: systolic murmur, diastolic murmur, rubs, gallop, clicks GI/Abdominal exam: Present: soft, normal bowel sounds. Absent: distended, tenderness, guarding, rebound, rigid Extremities exam: Present: other (Abrasions noted to right elbow, knees, patient has some ecchymosis the right fifth digit there is moderate discomfort with range of motion remaining extremity exam is essentially unremarkable. Neurovascular intact) Back exam: Present: full ROM. Absent: tenderness, paraspinal tenderness, vertebral tenderness Neurological exam: Present: alert, oriented X3, CN II-XII intact, reflexes normal. Absent: motor sensory deficit Skin exam: Present: warm, dry, intact, normal color. Absent: rash Course Vital Signs 12/18/19 16:03 Temperature 98.0 F Pulse Rate 60 Respiratory 18 Rate Blood Pressure 144/81 O2 Sat by Pulse 97 Oximetry Procedures - Laceration Laceration #1 Consent Obtained: written consent Indication: laceration Site: face Size (cm): 3 Description: linear Anesthetic Used: lidocaine 1%, with epi (LET soln) Pre-repair: wound explored, irrigated extensively, deep structures intact Type of Sutures: other (dermal adhesive - exofin) Medical Decision Making - Medical Decision Making CT of the brain, C-spine and facial bones were reviewed there is no acute fracture, intracranial hemorrhage or mass effect. Patient has multiple abrasions in which his tetanus is up-to-date. Patient's laceration was cleaned, dermal adhesive was used to close. Disposition Clinical Impression: Fall, Abrasion, multiple sites, Facial laceration, Head injury Disposition: HOME SELF-CARE Condition: Stable Instructions (If sedation given, give patient instructions): Laceration (ED), Head Injury (ED) Additional Instructions: Please return to the Emergency Department if symptoms worsen or any other concerns. Is patient prescribed a controlled substance at d/c from ED?: No Referrals: Riddhi Manzo MD [Primary Care Provider] - 1-2 days Time of Disposition: 17:39
--- NOTE | 2019-12-18 18:03 | XR ---
EXAMINATION TYPE: XR finger RT DATE OF EXAM: 12/18/2019 COMPARISON: NONE HISTORY: Fall. Pain. TECHNIQUE: 3 views FINDINGS: The little finger of the right hand appears intact. I see no fracture nor dislocation. IMPRESSION: Negative right little finger exam.
== END 2019-12-18 18:15 | disposition home or self-care (01) ==
LOC: EC 15:53
DX: S01.111A Laceration without foreign body of right eyelid and periocular area, initial encounter (principal); S60.051A Contusion of right little finger without damage to nail, initial encounter; S50.311A Abrasion of right elbow, initial encounter; S80.212A Abrasion, left knee, initial encounter; S80.211A Abrasion, right knee, initial encounter; K21.9 Gastro-esophageal reflux disease without esophagitis; M19.90 Unspecified osteoarthritis, unspecified site; E07.9 Disorder of thyroid, unspecified; G70.00 Myasthenia gravis without (acute) exacerbation; Z23 Encounter for immunization; Z79.82 Long term (current) use of aspirin; Z79.890 Hormone replacement therapy; Z79.899 Other long term (current) drug therapy; W01.10XA Fall on same level from slipping, tripping and stumbling with subsequent striking against unspecified object, initial encounter; Y92.89 Other specified places as the place of occurrence of the external cause
CPT/HCPCS: 12013; 70450; 70486; 72125; 90471; 90715; 99284

== ENCOUNTER → 2020-05-05 | Outpatient (CLI) | payer MEDICARE ==
[2020-05-05 10:52] LABS: Appearance,Urine Clear (Clear); Bilirubin,Urine Negative (Negative); Blood,Urine Negative (Negative); Color,Urine Dark Yellow; Glucose,Urine (UA) Negative (Negative); Ketones,Urine 1+ (Negative); Leukocyte Esterase,Urine Trace (Negative); Mucus,Urine Moderate /hpf; Nitrite,Urine Negative (Negative); PH, Urine 5.5 (5.0-8.0); Protein,Urine 1+ (Negative); RBC,Urine 1 /hpf (0-5); Specific Gravity,Urine 1.035 (1.001-1.035); Squamous Epithelial Cell,Urine <1 /hpf (0-4); WBC,Urine 2 /hpf (0-5)
[2020-05-05 11:09] LABS: HCT 38.1 % (39.0-53.0); HGB 12.4 gm/dL (13.0-17.5); MCH 38.1 pg (25.0-35.0); MCHC 32.5 g/dL (31.0-37.0); Macrocytosis Marked; Mean Platelet Volume 7.6; Platelet Count 208 k/uL (150-450); RBC 3.25 m/uL (4.30-5.90); RDW 15.4 % (11.5-15.5); WBC 3.7 k/uL (3.8-10.6)
[2020-05-05 11:11] LABS: MCV 117.3 fL (80.0-100.0)
[2020-05-05 17:18] LABS: African American GFR (CKD) 113.2 (60.0-200.0); Albumin 4.5 g/dL (3.80-4.90); Albumin/Globulin Ratio 2.37 (1.60-3.17); Anion Gap 6.6 mmol/L (4.00-12.00); BUN/Creat Ratio 18.57 Ratio (12.00-20.00); Calcium 9.4 mg/dL (8.7-10.3); Carbon Dioxide 27.4 mmol/L (21.6-31.8); Globulin 1.9 g/dL (1.6-3.3); Non-African American GFR(CKD) 97.7 (60.0-200.0); Potassium 4.7 mmol/L (3.5-5.5); Total Bilirubin 0.7 mg/dL (0.3-1.2); Total Protein 6.4 g/dL (6.2-8.2)
[2020-05-05 23:26] LABS: INR 0.91 (0.90-1.11); Partial Thromboplastin Time 27.4 sec (23.5-31.0)
== END | disposition home or self-care (01) ==
LOC: LABWHC1 09:43
PROVIDERS: ATTEND Orthopaedic Surgery
DX: Z01.818 Encounter for other preprocedural examination (principal); Z01.812 Encounter for preprocedural laboratory examination; M17.12 Unilateral primary osteoarthritis, left knee
CPT/HCPCS: 36415; 80053; 81001; 85027; 85610; 85730; 87070; 93005

== ENCOUNTER → 2020-05-17 | Outpatient (CLI) | payer MEDICARE, OTHER ==
[~2020-05-17] MED LIST changes: -DEXAMETHASONE SOD PHOSPHATE 10 MG/ML 1 ML VIAL IV ONE; -MIDAZOLAM 2 MG/2 ML VIAL IV PRN; -ONDANSETRON 4 MG/2 ML VIAL IVP ONE; +REGADENOSON 0.4 MG/5 ML SYRINGE IV PRN; -ceFAZolin 2 GM in SODIUM CHLORIDE 0.9% 100 ML IVPB ONE
--- NOTE | 2020-05-17 10:58 | NM ---
EXAMINATION TYPE: NM stress lexiscan cardiolite DATE OF EXAM: 05/17/2020 COMPARISON: NONE HISTORY: Abnormal EKG TECHNIQUE: After the intravenous administration of 10.6 mCi Tc 99m Sestamibi - Cardiolite resting SP ECT images acquired 53 minutes post injection. The patient received 0.4mg Lexiscan, 26.3 mCi Tc 99m Sestamibi - Stress images obtained [address] injection FINDINGS: Review of stress and rest SPECT images demonstrates decreased uptake along the inferior lateral left ventricle on stress and rest images extending into the apex. Gated analysis shows normal wall motion with an estimated left ventricular ejection fraction of 54 %. IMPRESSION: No scintigraphic evidence for reversible ischemia. Evidence of prior infarct.
--- NOTE | 2020-05-17 14:36 | EST ---
EXERCISE STRESS AGE: 69 SEX: Male HT: 6 ft WT: 230 lbs. PROTOCOL: Lexiscan STAGE: N/A DURATION OF EXERCISE: N/A HEART RATE REST: 53 BLOOD PRESSURE REST: 153/76 MAXIMUM HEART RATE ACHIEVED: 84 MAXIMUM BLOOD PRESSURE: 150/71 85% MPHR: 130 100% MPHR: 153 METS: N/A INDICATIONS: Abnormal EKG. CLINICAL INFORMATION Baseline rhythm is a sinus mechanism, rate of 53, poor R progression, nonspecific ST-T wave changes. Baseline blood pressure 153/76 mmHg. Patient received an injection of Lexiscan. Electrocardiograph monitoring revealed occasional PVCs. There was no evidence of diagnostic ischemic ST deviation. Cardiolite was injected per protocol. CONCLUSION: 1. Nondiagnostic electrocardiograph stress testing with occasional PVCs. 2. Nuclear images will be reported separately. MMODL / IJN: [id number] /
== END | disposition home or self-care (01) ==
LOC: RADNMMAIN 07:45
PROVIDERS: ATTEND Family Medicine
DX: I49.3 Ventricular premature depolarization (principal); Z86.73 Personal history of transient ischemic attack (TIA), and cerebral infarction without residual deficits
CPT/HCPCS: 93017; 78452; A9500; J2785

== ENCOUNTER 2020-05-24 09:18 | Day surgery (SDC) | payer OTHER, MEDICARE ==
[2020-05-19 15:54] VITALS: BMI 31.1
[~2020-05-24 09:18] MED LIST changes: +ACETAMINOPHEN TAB 500 MG TAB PO PRN; +DEXAMETHASONE SOD PHOSPHATE 4 MG/ML 1 ML VIAL IV ONE; +GABAPENTIN 300 MG CAP PO PRN; +HYDROmorphone 0.5 MG/0.5 ML SYRINGE IVP PRN; +LIDOCAINE 1% (10MG/ML) FOR IV START INTRADERMA PRN; +MELOXICAM 7.5 MG TAB PO PRN; +MIDAZOLAM 2 MG/2 ML VIAL IV PRN; +ONDANSETRON 4 MG/2 ML VIAL IVP ONE; -REGADENOSON 0.4 MG/5 ML SYRINGE IV PRN; +TRANEXAMIC ACID 1,000 MG in SODIUM CHLORIDE 0.9% 100 ML IVPB PRN; +fentaNYL (PF) 50 MCG/ML 2 ML AMP IV PRN
[2020-05-24] MEDS ORDERED: HYDROmorphone 0.2 MG/1 ML SYRINGE IVP PRN (09:30)
[2020-05-24] MEDS ORDERED: ONDANSETRON 4 MG/2 ML VIAL IVP PRN (09:30)
[2020-05-24] MEDS ORDERED: bisacodyL 10 MG SUPP RECTAL PRN (09:30)
[2020-05-24] MEDS ORDERED: MAGNESIUM HYDROXIDE 2,400 MG/10 ML CUP PO PRN (09:30)
[2020-05-24] MEDS ORDERED: HYDROmorphone 0.5 MG/0.5 ML SYRINGE IVP PRN ×2 (09:30)
[2020-05-24] MEDS ORDERED: NALOXONE 0.4 MG/ML 1 ML VIAL IV PRN (09:30)
[2020-05-24] MEDS ORDERED: HYDROcodone/APAP 5-325MG 1 EACH TAB PO PRN (09:30)
[2020-05-24] MEDS: LACTATED RINGERS 1,000 ML IV SCH ×2 (10:20→17:10)
[2020-05-24] MEDS ORDERED: MIDAZOLAM 2 MG/2 ML VIAL IV ONE (11:05)
[2020-05-24] MEDS ORDERED: fentaNYL (PF) 50 MCG/ML 2 ML AMP IV ONE (11:05)
--- NOTE | 2020-05-24 11:25 | P.ANPRN ---
Procedure Note - Anesthesia - Nerve Block Performed Left Adductor Canal Infusion Time Out Performed: Yes Date of Procedure: 05/24/20 Procedure Start Time: 11:05 Procedure Stop Time: 11:14 Location of Patient: PreOp Indication: Requested by Surgeon Specifically requested for management of pain by DrAnia: Yoni Owens Sedation Type: Sedate with meaningful contact maintained Preparation: Sterile Prep, Sterile Dressing Position: Supine Catheter: Indwelling Needle Types: Pajunk Needle Gauge: 18 Ultrasound used to visualize needle placement: Yes Ultrasound used to observe medication spread: Yes Injectate: 0.5% Ropivacaine (see comment for volume) (20 ml) Blood Aspirated: No Pain Paresthesia on Injection Noted: No Resistance on Injection: Normal Image Stored and Saved: Yes Events: Uneventful and Well Tolerated
[2020-05-24] MEDS ORDERED: PROPOFOL 10 MG/ML 20 ML VIAL IV ONE (11:41)
[2020-05-24] MEDS ORDERED: MIDAZOLAM 2 MG/2 ML VIAL ONE (11:41)
[2020-05-24] MEDS ORDERED: fentaNYL (PF) 50 MCG/ML 2 ML AMP ONE (11:41)
[2020-05-24] MEDS ORDERED: TRANEXAMIC ACID 1,000 MG/10 ML VIAL ONE (11:41)
[2020-05-24] MEDS ORDERED: SODIUM CHLORIDE 0.9% 100 ML BAG ONE (11:41)
[2020-05-24] MEDS: ROPIVACAINE 246.25 MG, EPINEPHrine 0.5 MG, KETOROLAC 30 MG, cloNIDine HCL/PF 80 MCG, WA... MISCELLANE PRN ×10 (11:45→12:59)
[2020-05-24] MEDS ORDERED: ROPIVACAINE 0.2%-NS ON-Q PUMP 1,090 MG, EMPTY PAIN BALL 1 EACH MISCELLANE PRN (12:00)
[2020-05-24] MEDS ORDERED: ceFAZolin 3,000 MG in SODIUM CHLORIDE 0.9% IRRIGATIO 3,000 ML IRRIGATION ONE (12:16)
--- NOTE | 2020-05-24 13:15 | P.OP ---
Date of Procedure: 05/24/20 Preoperative Diagnosis: Severe osteoarthritis left knee with a valgus deformity Postoperative Diagnosis: Severe osteoarthritis left knee with a valgus deformity Procedure(s) Performed: Right total knee arthroplasty Implants: Dhillon [employer] Nephew Journey II Bi-cruciate stabilized Oxinium femoral component size 8, right Dhillon [employer]hew Journey nonporous tibial baseplate size 8, right Dhillon [employer] Nephew Journey II, constrained articular insert, size 9 mm, Size 7-8, right Dhillon [employer]hew Journey Cammy II resurfacing patellar component, oval, 35 mm All components were cemented using Palacos R bone cement x 2 The articulation is Oxinium on polyethylene Anesthesia: spinal Surgeon: Yoni Owens Epoxy Coatings Installer #1: Samantha Coats Estimated Blood Loss (ml): 50 Pathology: other (Bone and cartilage) Condition: stable Disposition: PACU Indications for Procedure: After failure of conservative treatment we discussed the surgical and nonsurgical treatment options at length. Patient wishes to proceed with a total knee arthroplasty. Complications specific to this procedure were discussed at length, including but not limited to infection, bleeding, stiffness, and nerve injury. Covid-19 was also discussed at length with the patient, and they are aware of the current policies and procedures. The patient was given the option of delaying surgery, but they elect to proceed knowing these risks. Patient is aware of all these complications and informed consent was obtained Operative Findings: The operative findings are consistent with severe osteoarthritis of the left knee with a valgus deformity Description of Procedure: Patient was seen in the preoperative area and the consent was reviewed and the operative site was marked with a skin marker. The patient verified the procedure and the operative site. An adductor canal pain catheter was placed by anesthesia in the preoperative area. The patient was then brought to the operating room and given preoperative antibiotics intravenously. A gram of transexamic acid was given intravenously. A spinal anesthetic was administered by the anesthesia department. A tourniquet was placed on the upper thigh and th e lower extremity was prepped with chlorhexidine and draped in usual sterile fashion. A universal timeout was then performed which confirmed the patient's name, surgical site, ALLERGIES, and consent. The lower extremity was then exsanguinated and tourniquet was inflated to 250 mmHg. A standard anterior midline approach to the knee was performed. The skin and subcutaneous tissue were sharply dissected down to the patellar tendon. A medial parapatellar arthrotomy was then performed. The knee was then extended, the patellar was everted, and the knee was again flexed. The infra-patellar fat pad was removed in order to enhance exposure. The anterior horns of both menisci were excised, and a release was performed to the posterior medial aspect of the knee. On gross visual inspection, there was complete loss of articular cartilage in the medial and patellofemoral joint spaces. There was also significant cartilage damage in the lateral compartment. There were multiple periarticular osteophytes globally about the knee which were then removed with a Ronguer. The femoral canal was then opened with the 9.5 mm intramedullary drill. The 8 mm intramedullary ada was then inserted into the femoral canal with the distal femoral cutting guide set for 5 of valgus. The distal femoral cutting block was then pinned in place. The intramedullary ada was then removed, and the distal femur was then cut. The cutting block was then removed and the cut was checked for symmetry. The resected bone was then measured to confirm the appropriate distal femoral resection. Next, the sizing guide was then placed and set for 3 external rotation based off of the epicondylar axis and Whitesides line. Pins were then placed and the drill holes, and the femur was sized with the sizing stylus. The pins were then removed, and the sizing guide was then removed. The spikes of the femoral block was then placed into the predrilled holes, and malleted into place. Two 45 mm pins were then placed into the fixation holes on the cutting block. An darrian wing was then used to ensure there would be no notching with the anterior cut. The anterior condyles were cut without notching. The anterior chord cut was then performed, followed by the posterior cut, posterior chamfer cut, and the anterior chamfer cut. The collateral ligaments were protected during the entire process. The cutting bl ock was then removed. Any remaining bone and osteophytes were removed from the femur with a Rominger. The femoral canal was plugged with autologous bone. Attention was then directed to the tibia. The remaining ACL was removed with a Ronguer, and the tibia was then gently subluxed forward with a large bent knee retractor. Any remaining menisci were excised. The posterior lateral corner was cauterized in order to coagulate the lateral geniculate artery. The extra medullary tibial cutting guide was then placed, set for the appropriate rotation, slope, and depth of resection. The proximal tibia cutting guide was then pinned in place. Proximal tibia was then cut and sized. The femoral trial was placed. A narrow saw blade was then used to remove the anterior intracondylar femoral bone. The CR notch trial was then placed. The tibial trial was placed with the appropriate-sized insert. The knee was able to fully extend and flex to 130 and was stable throughout all range of motion. The knee was then extended and the patella was everted. Patella was then measured, and then using an osteotomy guide, the patella was cut at the appropriate level. The patella was then measured and drilled and the patella trial was then placed. The knee was then taken through range of motion with the patella trial and the patella tracked normally using the no thumbs technique.. The knee was then extended patella trial was then removed and the patella was everted. Knee was then flexed and lug holes were drilled through the femoral trial and the femoral trial was then removed. The tibial was then re-exposed, and the tibial broach guide was then pinned in place after it was set for the appropriate rotation to allow for the most coverage without overhang. The tibia was then reamed and broached. The cut surfaces of bone were then irrigated with pulsatile lavage. The posterior structures were injected with the ropivacaine solution. The knee was also irrigated with Irrisept solution. The components were then opened, the cement was mixed, and the components were then cemented in place. The cement was allowed to harden with the knee in full extension. While the cement was waldron rdening, the remaining soft tissues were then injected with a ropivacaine solution, which consisted of 246.25 mg of ropivacaine, 0.5 mg of epinephrine, 30 mg of Toradol, 80 g of clonidine, and 48.45 mL of sterile water, for a total of 100 mL of fluid injected. After the cemented hardened. The tourniquet was released, and hemostasis was obtained. A second gram of transexamic acid was given intravenously. The knee was again irrigated. The knee was again taken through range of motion and found to be stable throughout all range of motion of 0-130, and the patella tracked normally. The fascia was then closed with 0 Vicryl followed by #2 strata fix suture. The subcutaneous tissue was closed with 3-0 Vicryl and 3-0 strata fix. Exofin glue was used for the skin and placed with the knee in flexion. After the glue had dried, and Optafoam silver impregnated dressing was applied. The patient was then transferred to recovery room in stable condition. The infertility medical assistant COLLEEN Mack was required due the complexity surgery and the need for a skilled surgical appliances salesperson. She assisted in positioning, draping, retraction, and closure of the wound.
--- NOTE | 2020-05-24 14:22 | XR ---
EXAMINATION TYPE: XR knee limited LT DATE OF EXAM: 05/24/2020 COMPARISON: NONE TECHNIQUE: Two views submitted HISTORY: Post op FINDINGS: There is a prosthetic knee in near anatomic alignment. There is soft tissue edema and emphysema. Po stsurgical change involving the femur also noted. Vascular calcification seen. IMPRESSION: 1. Postoperative change. Appears in near-anatomic alignment
--- NOTE | 2020-05-24 16:03 | P.CONS ---
History of Present Illness - Reason for Consult Consult date: 05/24/20 Medical management - Chief Complaint Left knee also arthritis - History of Present Illness This is a 69-year-old male with past medical history noted below significant for myasthenia gravis and hypothyroidism was admitted to the hospital for elective total left knee arthroplasty. Patient is postoperative day #0. I was asked to see him for medical management. Patient himself does not have any concerns or complaints. His heart rate was noted to be in the 40s and 50s postoperatively but he is a symptomatic. He informed me that he was very athletic and he is used to have his heart rate on the lower end. No other complaints otherwise. Review of Systems Review of system: 14 points review of systems were obtained and were negative except to what were mentioned in the HPI. Past Medical History Past Medical History: Eye Disorder, GERD/Reflux, Hyperlipidemia, Musculoskeletal Disorder, Thyroid Disorder Additional Past Medical History / Comment(s): myasthenia gravis, EYE DISORDER R/T MG(improved), "borderline anemia", History of Any Multi-Drug Resistant Organisms: None Reported Past Surgical History: Joint Replacement, Orthopedic Surgery Additional Past Surgical History / Comment(s): ORIF LT ANKLE, lucas KNEE ARTHROSC OPY, LT FEMUR (PLATE/SCREWS). LT ROTATOR CUFF SURG-WITH IMPLANTS. LT RING FINGER SURG. LT EAR DRUM REPAIR. REMOVAL THYMUS GLANd, RT HIP REPLACEMENT, TLK may 2020, COLONOSCOPY Past Anesthesia/Blood Transfusion Reactions: No Reported Reaction Additional Past Anesthesia/Blood Transfusion Reaction / Comm: CONCERNED ABOUT ANESTHESIA D/T MG. see clearance from neurologist(no general anesthesia) due to myasthenia gravis. Past Psychological History: No Psychological Hx Reported Smoking Status: Never smoker Past Alcohol Use History: Daily Additional Past Alcohol Use History / Comment(s): 4 DRINKS DAILY. Past Drug Use History: None Reported - Past Family History Mother Family Medical History: Cancer Medications and Allergies Home Medications Medication Instructions Recorded Confirmed Type Levothyroxine Sodium [Synthroid] 50 mcg PO 2100 01/20/15 05/24/20 History Pyridostigmine [place] [Mestinon] 60 mg PO 0800,1100,1400,1700 PRN 01/20/15 05/24/20 History Aspirin [Adult Low Dose Aspirin EC] 81 mg PO DAILY 05/23/16 05/24/20 History Multivit-Min/FA/Lycopen/Lutein 1 tab PO DAILY 05/23/16 05/24/20 History [Centrum Silver Tablet] Pyridostigmine [place] [Mestinon] 180 mg PO 0500,1300,2100 05/23/16 05/24/20 History Cyanocobalamin (Vitamin B-12) 1,000 mcg PO DAILY 05/19/20 05/24/20 History [Vitamin B-12] Famotidine [Pepcid] 20 mg PO 0500 05/19/20 05/24/20 History azaTHIOprine [Imuran] 200 mg PO 0500 05/19/20 05/24/20 History predniSONE 7.5 mg PO 0500 05/19/20 05/24/20 History Allergies Allergy/AdvReac Type Severity Reaction Status Date / Time No Known Allergies Allergy Verified 05/24/20 15:19 Physical Exam Vitals: Vital Signs Temp Pulse Pulse Resp BP BP BP 05/24/20 15:26 97.4 F L 52 L 16 150/72 05/24/20 14:45 52 L 16 121/64 05/24/20 14:30 49 L 16 122/63 05/24/20 14:15 51 L 16 121/59 05/24/20 14:00 51 L 14 119/60 05/24/20 13:49 97.0 F L 55 L 16 114/56 05/24/20 11:18 49 L 16 128/69 05/24/20 10:07 98.9 F 59 L 16 171/61 05/24/20 09:59 16 Pulse Ox 05/24/20 15:26 98 05/24/20 14:45 98 05/24/20 14:30 97 05/24/20 14:15 98 05/24/20 14:00 100 05/24/20 13:49 99 05/24/20 11:18 100 05/24/20 10:07 99 05/24/20 09:59 Intake and Output 05/24/20 05/24/20 05/24/20 06:59 14:59 22:59 Intake Total 951 Output Total 50 Balance 901 Intake: IV 951 Output: Estimated Blood Loss 50 Other: Weight 102.6 kg 102.6 kg General: The patient is awake and alert, in no distress Eye: there is normal conjunctiva bilaterally. Neck: The neck is supple, there is no JVD. Cardiovascular: Normal S1-S2, no S3-S4, no murmurs. Respiratory: Lungs clear to auscultation bilaterally Gastrointestinal: Abdomen is soft, nontender Musculoskeletal: There is no pedal edema. Neurological:. Speech is normal. Skin: Skin is warm and dry Assessment and Plan Assessment: 1. Postoperative a #0 status post total left knee arthroplasty: Postoperative care per orthopedic surgery. DVT prophylaxis with full dose aspirin twice daily per orthopedic protocol. Pain control and PT/OT evaluation. 2. Sinus bradycardia: We will continue nuclear monitoring technician. Patient is a symptomatic. May be chronic attributed to patient's reported history of being athletic in the past. Cardiac Lexiscan stress test last week was unremarkable. 3. Chronic medical problems: Myasthenia gravis and hypothyroidism: Continue home medications Today, I reviewed his medication list. I would order CBC and BMP for the morning. Thank you very much for the consultation. We will continue to follow- up on the patient closely with you.
[2020-05-24] MEDS: PYRIDOSTIGMINE 60 MG TAB PO PRN (17:00)
[2020-05-24] MEDS: SODIUM CHLORIDE 0.9% 1,000 ML IV SCH ×2 (17:10→20:29)
[2020-05-24] MEDS: PYRIDOSTIGMINE 60 MG TAB PO SCH (20:29)
[2020-05-24] MEDS: ASPIRIN 325 MG TAB PO SCH (20:29)
[2020-05-24] MEDS ORDERED: ASPIRIN 325 MG TAB PO SCH (21:00)
[2020-05-24] MEDS ORDERED: SENNOSIDES-DOCUSATE SODIUM 1 EACH TAB PO SCH (21:00)
[2020-05-24] MEDS ORDERED: LEVOTHYROXINE 50 MCG TAB PO SCH (21:00)
[2020-05-25] MEDS: HYDROcodone/APAP 5-325MG 1 EACH TAB PO PRN ×2 (02:41→07:52)
[2020-05-25] MEDS: PYRIDOSTIGMINE 60 MG TAB PO SCH (04:17)
[2020-05-25] MEDS ORDERED: PYRIDOSTIGMINE PO SCH (05:00)
[2020-05-25] MEDS ORDERED: predniSONE 2.5 MG TAB PO SCH (05:00)
[2020-05-25] MEDS ORDERED: azaTHIOprine 50 MG TAB PO SCH (05:00)
[2020-05-25] MEDS ORDERED: FAMOTIDINE 20 MG TAB PO SCH (05:00)
--- NOTE | 2020-05-25 06:40 | P.PN ---
Progress Note - Text Progress Note Date: 05/25/20 Patient was seen at bedside at 615 AM. Patient is postop day 1 from left total knee replacement with adductor canal catheter placed for pain . Ropivacaine 0.2% infusion running at 8 ml per hour. VAS score is 2/10. Patient denies side effects. Lower extremity sensation and motor function is intact. Patient has ambulated. Dressing clean dry and intact over catheter site
[2020-05-25] MEDS: ASPIRIN 325 MG TAB PO SCH (07:52)
[2020-05-25] MEDS: PYRIDOSTIGMINE 60 MG TAB PO PRN ×2 (07:52→11:12)
[2020-05-25 07:56] VITALS: BP 112/64; PULSE 57; RESP 18; TEMP 98.9
--- NOTE | 2020-05-25 08:52 | P.DS ---
Providers Expected date of discharge: 05/25/20 Attending physician: Yoni Owens Consults: 05/24/20 09:30 Consult Physician Routine Consulting Provider: Maribel Mathis Consult Reason/Comments: medical management Do you want consulting provider notified?: Yes Primary care physician: Riddhi Manzo - Discharge Diagnosis(es) (1) Osteoarthritis of left knee Current Visit: Yes Status: Acute (2) Status post total left knee replacement Current Visit: Yes Status: Acute Hospital Course: This is a 69-year-old male with known history of degenerative arthritis of the left knee. The patient presented for evaluation as an outpatient. After discussion and consideration patient elects to proceed with total knee arthroplasty. The patient is seen preoperatively by Dr. Owens and medically cleared for surgery by their primary care physician. Patient is admitted to [facility] on 05/24/2020 for total knee arthroplasty. The procedure is performed without complication or sequelae. The patient is doing well postoperatively. Labs and vital signs are stable on day of discharge. On day of discharge patient's knee incision is healing well. There is minimal erythema. There is no drainage noted at this time. There is minimal soft tissu e swelling to the knee. Patient has full foot and ankle motion without difficulty or pain. Calf is soft and nontender to palpation. Neurovascular status to the left lower extremity is intact. Patient is discharged home in good condition. Opioid start talking form is reviewed and signed. Please see med rec for accurate list of home medications. Plan - Discharge Summary Discharge Rx Participant: Yes New Discharge Prescriptions: New Aspirin 325 mg PO BID #60 tab HYDROcodone/APAP 5-325MG [[place] 5-325] 1 - 2 tab PO Q6HR PRN #48 tab PRN Reason: Pain Sennosides [Senokot] 2 tab PO DAILY PRN #60 tablet PRN Reason: Constipation No Action Levothyroxine Sodium [Synthroid] 50 mcg PO 2100 Pyridostigmine [place] [Mestinon] 60 mg PO 0800,1100,1400,1700 PRN PRN Reason: MG Aspirin [Adult Low Dose Aspirin EC] 81 mg PO DAILY Pyridostigmine [place] [Mestinon] 180 mg PO 0500,1300,2100 Multivit-Min/FA/Lycopen/Lutein [Centrum Silver Tablet] 1 tab PO DAILY Famotidine [Pepcid] 20 mg PO 0500 predniSONE 7.5 mg PO 0500 azaTHIOprine [Imuran] 200 mg PO 0500 Cyanocobalamin (Vitamin B-12) [Vitamin B-12] 1,000 mcg PO DAILY Discharge Medication List Levothyroxine Sodium [Synthroid] 50 mcg PO 2100 01/20/15 [History] Pyridostigmine [place] [Mestinon] 60 mg PO 0800,1100,1400,1700 PRN 01/20/15 [History] Aspirin [Adult Low Dose Aspirin EC] 81 mg PO DAILY 05/23/16 [History] Multivit-Min/FA/Lycopen/Lutein [Centrum Silver Tablet] 1 tab PO DAILY 05/23/16 [History] Pyridostigmine [place] [Mestinon] 180 mg PO 0500,1300,2100 05/23/16 [History] Cyanocobalamin (Vitamin B-12) [Vitamin B-12] 1,000 mcg PO DAILY 05/19/20 [History] Famotidine [Pepcid] 20 mg PO 0500 05/19/20 [History] azaTHIOprine [Imuran] 200 mg PO 0500 05/19/20 [History] predniSONE 7.5 mg PO 0500 05/19/20 [History] Aspirin 325 mg PO BID #60 tab 05/25/20 [Rx] HYDROcodone/APAP 5-325MG [[place] 5-325] 1 - 2 tab PO Q6HR PRN #48 tab 05/25/20 [Rx] Sennosides [Senokot] 2 tab PO DAILY PRN #60 tablet 05/25/20 [Rx] Follow up Appointment(s)/Referral(s): Yoni Owens DO [Doctor of Osteopathic Medicine] - 2 Weeks Ambulatory/Diagnostic Orders: Continuous Passive Motion (CPM) Machine [DME.AMB1] Time Frame: 3 Weeks, Locat ion: None Selected Patient Instructions/Handouts: *Surgery [facility] - On-Q Pain Pump Discharge Instructions, Precautions after Total Joint Replacement Surgery (DC), Knee Replacement (DC) Activity/Diet/Wound Care/Special Instructions: Weightbearing as tolerated with a walker. CPM 5-6h daily as tolerated. Leave dressing intact. May be removed by home care nurse or by patient in 10 days. May shower with dressing on. Recommend use of compression stockings daily until follow up to help prevent swelling and blood clots. May remove at night before sleeping. Please take aspirin 325mg twice daily for 30 days to prevent blood clots. Please follow up with [facility] and call with any questions or concerns, . Discharge Disposition: HOME WITH HOME HEALTH SERVICES
[2020-05-25] MEDS ORDERED: MELOXICAM 7.5 MG TAB PO SCH (09:00)
[2020-05-25] MEDS ORDERED: ASPIRIN 81 MG PO SCH (09:00)
[2020-05-25 09:29] LABS: Basophils # (A) 0.01 X 10*3/uL (0.00-0.10); Basophils % (A) 0.3 %; Eosinophils # (A) 0.05 X 10*3/uL (0.04-0.35); Eosinophils % (A) 1.3 %; HCT 27.4 % (39.6-50.0); HGB 9.4 g/dL (13.0-17.0); Lymphocytes # (A) 0.46 X 10*3/uL (0.90-5.00); Lymphocytes % (A) 11.8 %; MCH 39.5 pg (27.0-32.0); MCHC 34.3 g/dL (32.0-37.0); MCV 115.1 fL (80.0-97.0); Mean Platelet Volume 9.9 fL (9.5-12.2); Monocytes # (A) 0.34 X 10*3/uL (0.20-1.00); Monocytes % (A) 8.7 %; Neutrophils # (A) 3.03 X 10*3/uL (1.80-7.70); Neutrophils % (A) 77.4 %; Platelet Count 213 X 10*3/uL (140-440); RBC 2.38 X 10*6/uL (4.40-5.60); RDW 13.9 % (11.5-14.5); WBC 3.91 X 10*3/uL (4.50-10.00)
[2020-05-25 09:43] LABS: African American GFR (CKD) 113.2 (60.0-200.0); BUN/Creat Ratio 15.71 Ratio (12.00-20.00); Calcium 8.4 mg/dL (8.7-10.3); Non-African American GFR(CKD) 97.7 (60.0-200.0); Potassium 4.7 mmol/L (3.5-5.5)
--- NOTE | 2020-05-25 10:41 | P.PN ---
<Curtis Wise - Last Filed: 05/25/20 10:19> Subjective Progress Note Date: 05/25/20 Principal diagnosis: Total left knee arthroplasty Hospital course: Patient is a 69-year-old male with a past medical history of myasthenia gravis and hypothyroidism. He is currently status post a total left knee arthroplasty secondary to osteoarthritis of left knee. Surgical procedure was completed on 05/24/[address] Owens. Patient is postop day 1 today. Patient reports that he is doing well. He reports controlled postoperative pain and denies having any other complaints at this time including headache, lightheadedness, dizziness, chest pain or palpitations, shortness of breath or dyspnea with exertion. He reports that he has tolerated his regular diet and denies having any episodes of postoperative nausea or vomiting. Patient reports he has been a mbulatory with assistance and is walking with a walker. Patient reports no difficulties with urination and denies having a bowel movement since surgical procedure. Patient reports that he is looking forward to being discharged home today. Orthopedic surgeries plan is to discharge patient today home with home care and PT/OT. Patient medically clear for discharge at this time. Physical exam: General: non toxic, no distress, appears at stated age Derm: warm, dry Head: atraumatic, normocephalic, symmetric Eyes: EOMI, no lid lag, anicteric sclera Mouth: no lip lesion, mucus membranes moist Cardiovascular: S1S2 reg, no murmur, positive posterior tibial pulse bilateral, Lungs: CTA bilateral, no rhonchi, no rales , no accessory muscle use Abdominal: soft, nontender to palpation, no guarding, no appreciable organomegaly Ext: Postsurgical dressing to left knee intact. SHAHIDA hose in place. Neuro: CN II-XI grossly intact, no focal neuro deficits Psych: Alert, oriented, appropriate affect Assessment and Plan of Care: Status post total left knee arthroplasty -PT/OT/weightbearing as directed by primary admitting orthopedic surgery team. -DVT prophylaxis per primary admitting orthopedic surgery team, patient currently on aspirin 325 mg twice daily. -Pain management per primary admitting orthopedic surgery team. Asymptomatic Sinus bradycardia -Patient remains asymptomatic. Heart rate 59 this morning. Myasthenia gravis -Continue daily home medication regimen consisting of Azathioprine, Pyrido stigmine bromide, and mestinon. Hypothyroidism -Continue daily home medication regimen of levothyroxine 50 g each morning. CODE STATUS: Full code DVT prophylaxis: Per primary admitting orthopedic surgery team, patient currently on aspirin 325 mg twice daily. Discussed with: Patient and ABEL Samuel Anticipated discharge date: Patient being discharged home with home care today. Anticipated discharge place: Home with home care, as arranged by primary admitting orthopedic surgery team. A total of 35 minutes was spent on the care of this complex patient more than 50% of the time was spent in counseling and care coordination. Thank you for allowing us to participate in the care of this pleasant patient. Do not hesitate to contact us with questions. Someone can be reached from the [facility] hospitalist group all hours of the day at [phone] or via [employer]. Objective - Vital Signs Vital signs: Vital Signs Temp 98.9 F 05/25/20 07:09 Pulse 59 L 05/25/20 07:34 Resp 18 05/25/20 07:09 BP 112/64 05/25/20 07:09 Pulse Ox 98 05/25/20 07:09 Intake & Output 05/24/20 05/25/20 05/25/20 18:59 06:59 18:59 Intake Total 951 Output Total 50 Balance 901 Weight 102.6 kg Intake: IV 951 Output: Estimated Blood Loss 50 Other: # Voids 1 - Labs CBC & Chem 7: 05/25/20 05:51 05/25/20 05:51 Labs: Abnormal Lab Results - Last 24 Hours (Table) 05/25/20 05/25/20 Range/Units 05:51 05:51 WBC 3.91 L (4.50-10.00) X 10*3/uL RBC 2.38 L (4.40-5.60) X 10*6/uL Hgb 9.4 L (13.0-17.0) g/dL Hct 27.4 L (39.6-50.0) % MCV 115.1 H (80.0-97.0) fL MCH 39.5 H (27.0-32.0) pg Lymphocytes # 0.46 L (0.90-5.00) X 10*3/uL Anion Gap 1.00 L (4.00-12.00) mmol/L Glucose 126 H (70-110) mg/dL Calcium 8.4 L (8.7-10.3) mg/dL <Erna,Erica Amy - Last Filed: 05/25/20 18:37> Objective - Vital Signs Vital signs: Vital Signs Temp 98.9 F 05/25/20 07:09 Pulse 59 L 05/25/20 07:34 Resp 18 05/25/20 07:09 BP 112/64 05/25/20 07:09 Pulse Ox 98 05/25/20 07:09 Intake & Output 05/24/20 05/25/20 05/25/20 18:59 06:59 18:59 Intake Total 951 Output Total 50 Balance 901 Weight 102.6 kg Intake: IV 951 Output: Estimated Blood Loss 50 Other: # Voids 1 - Labs CBC & Chem 7: 05/25/20 05:51 05/25/20 05:51 Labs: Abnormal Lab Results - Last 24 Hours (Table) 05/25/20 05/25/20 Range/Units 05:51 05:51 WBC 3.91 L (4.50-10.00) X 10*3/uL RBC 2.38 L (4.40-5.60) X 10*6/uL Hgb 9.4 L (13.0-17.0) g/dL Hct 27.4 L (39.6-50.0) % MCV 115.1 H (80.0-97.0) fL MCH 39.5 H (27.0-32.0) pg Lymphocytes # 0.46 L (0.90-5.00) X 10*3/uL Anion Gap 1.00 L (4.00-12.00) mmol/L Glucose 126 H (70-110) mg/dL Calcium 8.4 L (8.7-10.3) mg/dL Assessment and Plan Assessment: I discussed the care with Curtis Wise NP and reviewed the findings and plan as documented in the note above. I did not staff this patient on this date.
== END 2020-05-25 13:01 | disposition home health service (06) ==
LOC: OR 09:18 → 4SSUR 13:46 → OR 05-25 13:01
PROVIDERS: ATTEND Orthopaedic Surgery
DX: M17.12 Unilateral primary osteoarthritis, left knee (principal); M21.062 Valgus deformity, not elsewhere classified, left knee; M25.762 Osteophyte, left knee; G70.00 Myasthenia gravis without (acute) exacerbation; E03.9 Hypothyroidism, unspecified; E78.5 Hyperlipidemia, unspecified; K21.9 Gastro-esophageal reflux disease without esophagitis; H91.90 Unspecified hearing loss, unspecified ear; Z79.82 Long term (current) use of aspirin; Z79.52 Long term (current) use of systemic steroids; Z79.890 Hormone replacement therapy; Z79.899 Other long term (current) drug therapy; Z98.890 Other specified postprocedural states; Z96.641 Presence of right artificial hip joint
CPT/HCPCS: 97110; 97161; 64448; 76942; 80048; 85025; 88300; 73560; 27447; C1713; C1776; J7500; J2250; J0171; J1100; J0690 ×3; J2405; J3010; J1885; J2795 ×2; J2704; J0735; J7512

== ENCOUNTER → 2021-01-06 | Outpatient (CLI) | payer MEDICARE ==
--- NOTE | 2021-01-06 12:12 | US ---
EXAMINATION TYPE: US abdomen complete DATE OF EXAM: 01/06/2021 COMPARISON: NONE CLINICAL HISTORY: R16.1 Splenomegaly. Anemia EXAM MEASUREMENTS: Liver Length: 16.3 cm a normal less than 15.5 cm. Gallbladder Wall: 0.2 cm CBD: 0.5 cm Spleen: 10.3 cm Right Kidney: 10.6x6.1x5.7 cm Left Kidney: 10.6x5.8x5.6 cm Pancreas: Obscured by bowel gas Liver: wnl Gallbladder: wnl Evidence for sonographic Macias's sign: No CBD: wnl Spleen: wnl Right Kidney: Sup cyst 1.0x1.1x1.2cm Left Kidney: wnl, Limited due to bowel gas Upper IVC: wnl Abd Aorta: wnl, areas seen IMPRESSION: 1. Simple appearing cyst superior pole right kidney 2. Mild hepatomegaly
== END | disposition home or self-care (01) ==
LOC: RADUSWWP 10:31
PROVIDERS: ATTEND Internal Medicine Hematology & Oncology
DX: D64.9 Anemia, unspecified (principal); R16.0 Hepatomegaly, not elsewhere classified; N28.1 Cyst of kidney, acquired
CPT/HCPCS: 76700

== ENCOUNTER → 2023-04-19 | Outpatient (CLI) | payer MEDICARE ==
--- NOTE | 2023-04-20 14:38 | BD ---
EXAMINATION TYPE: Axial Bone Density DATE OF EXAM: 04/19/2023 CLINICAL HISTORY: 72 years old Male. ICD-10 CODE: M85.80 OSTEOPENIA Height: Weight: FRAX RISK QUESTIONS: Alcohol (3 or more units per day): Yes Family History (Parent hip fracture): No Glucocorticoids (More than 3mos): Yes (Ex: prednisone, prednisolone, methylprednisolone, dexamethasone, and hydrocortisone). History of Fracture in Adulthood: Yes Secondary Osteoporosis: 1. Type 1 Diabetes: No 2. Hyperthyroidism: No 3. Menopause before 45: N/A 4. Malnutrition: No 5. Chronic liver disease: No Rheumatoid Arthritis: No Current Tobacco Use: No RISK FACTORS HISTORY OF: Hip Fracture (Right/Left): Yes When: Left Femur, [id number] Spine Fracture: No History of Wrist Fracture: No Surgery to Spine/Hip(right/left)/Wrist (right/left): Bilateral hip surgeries When: left femur, 2017 right hip Family History of Osteoporosis: Active: Yes Diet low in dairy products/other sources of calcium: No Lost more than 2 inches in height since high school: Frequent falls: No Poor Health: Hyperparathyroidism: Adrenal Insufficiency: No MEDICATIONS: Prednisone or other steroids: Yes How Long: Since 2014 Thyroid Medications: Yes Which medication: Levothyroxine How Long: Many years Osteoporosis Medications: No Additional Medications: med list scanned into PACS Additional History: patient has myasthenia gravis EXAM MEASUREMENTS: Bone mineral densitometry was performed using the [employer]. Bone mineral density as measured about the Lumbar spine is: ----- L1-L4(G/cm2): 1.133 T Score Values are as follows: ----- L1: -0.9 ----- L2: -0.5 ----- L3: -0.2 ----- L4: -0.1 ----- L1-L4: -0.4 Z Score Values are as follows: ----- L1: -1.3 ----- L2: -0.9 ----- L3: -0.7 ----- L4: -0.6 ----- L1-L4: -0.8 Bone mineral density has: decreased -2.1% since study of: 02/10/2019 Bone mineral density about the L Wrist (g/cm2): 0.742 T Score values are as follows: -----Dist. R+U: -0.9 -----Prox. R+U: 0.1 -----Radius total: -0.2 Z Score values are as follows: -----Dist. R+U: -0.1 -----Prox. R+U: 0.9 -----Radius total: 0.7 Bone mineral density has: decreased -10.9% since study of: 02/10/2019 FRAX%s: N/A IMPRESSION: Normal (Values between +1 and -1 indicate normal bone mass). Consider repeating this study in 5 year s or sooner if there is some new clinical indication. NOTE: T-SCORE=SD OF THE YOUNG ADULT MEAN.
== END | disposition home or self-care (01) ==
LOC: RADBDWWP 08:17
PROVIDERS: ATTEND Family Medicine
DX: M85.80 Other specified disorders of bone density and structure, unspecified site (principal)
CPT/HCPCS: 77080